=== PATIENT | male | born 1935 | race Caucasian/White ===

== ENCOUNTER 2021-03-21 11:25 | Emergency (ER) | payer OTHER ==
[~2021-03-21] VITALS: Ht 175.3 cm; Wt 68.0 kg
[2021-03-21] MEDS ORDERED: BLOOD PRESSURE MED PO (11:44)
[2021-03-21] MEDS ORDERED: CEPHALEXIN500 MG PO ×2 (12:33→13:40)
[2021-03-21 13:20] VITALS: BP 143/84
== END 2021-03-21 13:20 | disposition home or self-care (01) ==
LOC: M.ERS 11:25
DX: S51.811A Laceration without foreign body of right forearm, initial encounter (principal); I10 Essential (primary) hypertension; E11.9 Type 2 diabetes mellitus without complications; W22.8XXA Striking against or struck by other objects, initial encounter; Y93.89 Activity, other specified; Y92.89 Other specified places as the place of occurrence of the external cause; Y99.8 Other external cause status